=== PATIENT | male | born 1985 | race American Indian/Alaskan Native ===

== ENCOUNTER 2021-01-21 19:26 | Emergency (ER) | payer OTHER ==
--- NOTE | 2021-01-21 20:38 | EDM.PDOC ---
ED HPI GENERAL MEDICAL PROBLEM - General Chief Complaint: Chest Pain Stated Complaint: CHEST PAIN Time Seen by Provider: 01/21/21 19:30 Source of Information: Reports: Patient History Limitations: Reports: No Limitations - History of Present Illness INITIAL COMMENTS - FREE TEXT/NARRATIVE: c/[place]ing spell from [place] he works in [employer], is on a med for HTN, possibly lis 20 mg/d altho he has not taken in for a number of months was driving a friend back to [place], passing [employer] he had a violent coughing episode, gripped the steering wheel and face turned red, friend thought he might pass out and had him test puller, coughing spell passed, pt felt like something was caught at the back of his throat had some soreness across the mid chest from coughing, none now at [place] he had another episode chews some, no cigs/THC/street drugs no h/o asthma or pneumonia or lung problems, has had COVID vax x 2 no CV problems friend here and verified story Midsternal chest Pain Score (Numeric/FACES): 4 - Related Data Allergies Allergy/AdvReac Type Severity Reaction Status Date / Time No Known Allergies Allergy Verified 01/21/21 19:54 Home Meds: Home Meds Benzonatate 100 mg PO TID #15 capsule 01/21/21 [Rx] Sulfamethoxazole/Trimethoprim [Sulfamethoxazole-Tmp Ds Tablet] 1 each PO BID #10 tablet 01/21/21 [Rx] amLODIPine [Norvasc] 5 mg PO DAILY #7 tab 01/21/21 [Rx] ED ROS GENERAL - Review of Systems Review Of Systems: See Below Constitutional: Reports: No Symptoms HEENT: Reports: No Symptoms Respiratory: Reports: Cough Cardiovascular: Reports: No Symptoms Endocrine: Reports: No Symptoms GI/Abdominal: Reports: No Symptoms : Reports: No Symptoms Musculoskeletal: Reports: No Symptoms Skin: Reports: No Symptoms Neurological: Reports: No Symptoms Psychiatric: Reports: No Symptoms Hematologic/Lymphatic: Reports: No Symptoms Immunologic: Reports: No Symptoms ED EXAM, GENERAL - Physical Exam Exam: See Below Exam Limited By: No Limitations General Appearance: Alert, WD/WN, No Apparent Distress Nose: Normal Inspection, Other (mild swell) Head: Atraumatic, Normocephalic Neck: Supple, Non-Tender, Full Range of Motion. No: Lymphadenopathy (R), Lymphadenopathy (L) Respiratory/Chest: No Respiratory Distress, Lungs Clear, Normal Breath Sounds, Chest Non-Tender, Other (chest wall nontender) Cardiovascular: Regular Rate, Rhythm, No Edema, No Murmur GI/Abdominal: Normal Bowel Sounds, Soft, Non-Tender, No Distention Back Exam: Normal Inspection, Full Range of Motion Extremities: Normal Inspection, Normal Range of Motion, Non-Tender, No Pedal Edema Neurological: Alert, Oriented, CN II-XII Intact, Normal Cognition, No Motor/Sensory Deficits Psychiatric: Normal Affect, Normal Mood Skin Exam: Warm, Dry, Intact, Normal Color, No Rash Lymphatic: No Adenopathy Course - Vital Signs Last Recorded V/S: Last Vital Signs Temp 36.3 C 01/21/21 19:26 Pulse 94 01/21/21 19:26 Resp 18 01/21/21 19:26 BP 166/110 H 01/21/21 19: Pulse Ox 100 01/21/21 19:26 - Orders/Labs/Meds Orders: Active Orders 24 hr Category Date Time Status Chest 2V [CR] Stat Exams 01/21/21 20:31 Ordered Labs: Laboratory Tests 01/21/21 01/21/21 01/21/21 Range/Units 19:45 19:45 19:45 WBC 8.7 (3.2-10.1) x10-3/uL RBC 5.35 (3.90-5.90) x10(6)uL Hgb 14.8 (12.9-17.7) g/dL Hct 44.5 (38.3-50.1) % MCV 83.3 (80.8-98.7) fL MCH 27.7 (27.0-33.3) pg MCHC 33.2 (28.7-35.3) g/dL RDW 14.3 (12.4-15.0) % Plt Count 323 (117-477) x10(3)uL MPV 7.5 (6.7-11.0) fL Neut % (Auto) 58.4 (40.3-71.8) % Lymph % (Auto) 31.3 (15.8-45.3) % Harrison % (Auto) 8.3 (5.5-15.2) % Eos % (Auto) 1.5 (0.1-6.8) % Baso % (Auto) 0.5 (0.3-3.8) % Neut # (Auto) 5.1 (1.7-6.9) x10-3/uL Lymph # (Auto) 2.7 (0.5-4.5) x10-3/uL Harrison # (Auto) 0.7 (0.0-1.2) x10-3/uL Eos # (Auto) 0.1 (0.0-0.6) x10-3/uL Baso # (Auto) 0.0 (0.0-0.3) x10-3/uL D-Dimer, Quantitative 0.29 (0.0-0.59) mg/LFEU Sodium 141 (135-145) mmol/L Potassium 3.6 (3.5-5.3) mmol/L Chloride 101 (100-110) mmol/L Carbon Dioxide 28 (21-32) mmol/L BUN 17 (7-18) mg/dL Creatinine 1.6 H (0.70-1.30) mg/dL Est Cr Clr Drug Dosing 59.67 mL/min Estimated GFR (MDRD) 49 L (>60) BUN/Creatinine Ratio 10.6 (9-20) Glucose 115 (80-116) mg/dL Calcium 8.6 (8.6-10.2) mg/dL Total Bilirubin 0.3 (0.1-1.3) mg/dL AST 24 (5-25) IU/L ALT 47 H (12-36) U/L Alkaline Phosphatase 74 (56-112) IU/L Troponin I (4.0-60.3) pg/mL C-Reactive Protein (0.5-0.9) mg/dL Total Protein 8.0 (6.0-8.0) g/dL Albumin 3.8 (3.5-5.2) g/dL Globulin 4.2 g/dL Albumin/Globulin Ratio 0.9 /04/06 Range/Units 19:45 WBC (3.2-10.1) x10-3/uL RBC (3.90-5.90) x10(6)uL Hgb (12.9-17.7) g/dL Hct (38.3-50.1) % MCV (80.8-98.7) fL MCH (27.0-33.3) pg MCHC (28.7-35.3) g/dL RDW (12.4-15.0) % Plt Count (117-477) x10(3)uL MPV (6.7-11.0) fL Neut % (Auto) (40.3-71.8) % Lymph % (Auto) (15.8-45.3) % Harrison % (Auto) (5.5-15.2) % Eos % (Auto) (0.1-6.8) % Baso % (Auto) (0.3-3.8) % Neut # (Auto) (1.7-6.9) x10-3/uL Lymph # (Auto) (0.5-4.5) x10-3/uL Harrison # (Auto) (0.0-1.2) x10-3/uL Eos # (Auto) (0.0-0.6) x10-3/uL Baso # (Auto) (0.0-0.3) x10-3/uL D-Dimer, Quantitative (0.0-0.59) mg/LFEU Sodium (135-145) mmol/L Potassium (3.5-5.3) mmol/L Chloride (100-110) mmol/L Carbon Dioxide (21-32) mmol/L BUN (7-18) mg/dL Creatinine (0.70-1.30) mg/dL Est Cr Clr Drug Dosing mL/min Estimated GFR (MDRD) (>60) BUN/Creatinine Ratio (9-20) Glucose (80-116) mg/dL Calcium (8.6-10.2) mg/dL Total Bilirubin (0.1-1.3) mg/dL AST (5-25) IU/L ALT (12-36) U/L Alkaline Phosphatase (56-112) IU/L Troponin I < 4.0 L (4.0-60.3) pg/mL C-Reactive Protein 1.2 H (0.5-0.9) mg/dL Total Protein (6.0-8.0) g/dL Albumin (3.5-5.2) g/dL Globulin g/dL Albumin/Globulin Ratio - Re-Assessments/Exams Free Text/Narrative Re-Assessment/Exam: 01/21/21 21:05 GFR at 50%, pt informed, risk of ESRD and dialysis discussed will start on amlodipine 5 mg/d now pending further recommendations from PCP, pt agrees no increase in temp/wbc/segs, however CRP mildly inc'd suggesting a sinusitis with PND triggering cough, will empirically tx with tmp/smx DS bid x 5d pt agrees to close f/u, friend concurs pt and friend are planning on driving back to [place] [facility], Rx x 3 sent to [facility] at [place] EKG and trop are neg Departure - Departure Time of Disposition: 21:08 Disposition: Home, Self-Care 01 Condition: Good Clinical Impression: Paroxysmal cough, Elevated blood pressure reading, Elevated serum creatinine, Renal failure, Elevated C-reactive protein (CRP) - Discharge Information *PRESCRIPTION DRUG MONITORING PROGRAM REVIEWED*: Not Applicable *COPY OF PRESCRIPTION DRUG MONITORING REPORT IN PATIENT LAURA: Not Applicable Prescriptions: Benzonatate 100 mg PO TID #15 capsule amLODIPine [Norvasc] 5 mg PO DAILY #7 tab Sulfamethoxazole/Trimethoprim [Sulfamethoxazole-Tmp Ds Tablet] 1 each PO BID #10 tablet Instructions: Cough, Adult, Managing Your Hypertension, Acute Kidney Injury, Adult Forms: ED Department Discharge Additional Instructions: For blood pressure, take amlodipine 5 mg one tab daily for now until you receive additional instructions from your doctor. For cough, take benzonatate 100 mg 1 capsule 3 times a day for 5 days. For sinus infection, take trimethoprim-sulfamethoxazole DS 1 tab 2 times a day for 5 days. See your doctor next week for further evaluation and recommendations. Sepsis Event Note (ED) - Evaluation Sepsis Screening Result: No Definite Risk - Focused Exam Vital Signs: Vital Signs Temp Pulse Resp BP Pulse Ox 01/21/21 19:26 36.3 C 94 18 166/110 H 100 - My Orders Last 24 Hours: My Active Orders 01/21/21 20:31 Chest 2V [CR] Stat - Assessment/Plan Last 24 Hours: My Active Orders 01/21/21 20:31 Chest 2V [CR] Stat
[2021-01-21] MEDS ORDERED: Sulfamethoxazole/Trimethoprim 800-160 MG Tab PO ONE (20:55)
[2021-01-21] MEDS ORDERED: amLODIPine 5 MG Tab PO ONE (20:55)
[2021-01-21] MEDS ORDERED: Benzonatate 100 MG Cap PO ONE (20:55)
--- NOTE | 2021-01-24 11:24 | CR ---
INDICATION: Cough, paroxysmal. CHEST TWO VIEWS: PA and lateral views of the chest were obtained 01/21/21 - no comparisons. Overlying EKG leads are noted. The heart is normal in size and shape. Mediastinum is unremarkable. Bony structures were unremarkable. No consolidating pneumonia or effusion was seen. However, there is moderate bronchial wall cuffing at the lung bases, which may be on the basis of active peribronchial disease and should be correlated clinically. IMPRESSION: Except for bronchial wall cuffing, no evidence of active disease is noted. MTDD
== END 2021-01-21 21:25 | disposition home or self-care (01) ==
LOC: FB.ED 19:26
DX: R05 Cough (principal); R79.89 Other specified abnormal findings of blood chemistry; N19 Unspecified kidney failure; R03.0 Elevated blood-pressure reading, without diagnosis of hypertension; Z79.899 Other long term (current) drug therapy
CPT/HCPCS: 36415; 71046; 80053; 84484; 85025; 85379; 86140; 99284; A9270